=== PATIENT | female | born 1965 | race Caucasian/White ===

== ENCOUNTER 2021-09-26 11:45 | Emergency (ER) | payer OTHER, SELFPAY ==
--- NOTE | ~2021-09-26 | XR_ITS ---
EXAMINATION: XR CHEST CLINICAL INFORMATION: Chest pain COMPARISON: None TECHNIQUE: Frontal view of the chest was obtained. FINDINGS: There is borderline hyperinflation. Lungs are clear and the vascularity is normal. There is no pneumothorax, airspace consolidation, groundglass opacity, pleural reaction, or effusion. The heart is normal in size. The hilar and mediastinal contours and bony structures are unremarkable. XR/XR chest 1V IMPRESSION: Unremarkable examination.
--- NOTE | ~2021-09-26 | US_ITS ---
EXAMINATION: US VENOUS ULTRASOUND WITH DOPPLER LOWER EXTREMITY, RIGHT CLINICAL INFORMATION: Pain COMPARISON: None TECHNIQUE: Ultrasound of the deep veins is performed from the hip to the calf with compression sonography and color and pulse Doppler assessment. Spectral analysis with color-flow imaging is performed. FINDINGS: There is normal venous compression and respiratory variation and augmented flow. The visualized common femoral vein, superficial femoral vein, profunda femoral vein, popliteal vein, and the trifurcation region shows no evidence of deep venous thrombosis. There is no significant popliteal fossa cyst. US/US venous duplex LE RT IMPRESSION: No DVT demonstrated in the right lower extremity.
--- NOTE | 2021-09-26 11:49 | ECG_ITS ---
Test Reason : cp Blood Pressure : / mmHG Vent. Rate : 063 BPM Atrial Rate : 063 BPM P-R Int : 138 ms QRS Dur : 070 ms QT Int : 416 ms P-R-T Axes : 071 049 052 degrees QTc Int : 425 ms Normal sinus rhythm Normal ECG No previous ECGs available Referred By: Generic ED Physician Electronically Signed By:Garrett Gaines
[2021-09-26 12:12] VITALS: BP 114/56; PULSE 68; RESP 19; TEMP 36.3; O2SAT 98; BMI 23.8
[2021-09-26 12:15] LABS: MANUAL DIFF FLAG NO
[2021-09-26 12:16] LABS: Basophils Percent Auto 0.7 % (0-2); Eosinophils Absolute Auto 0.1 X10*3/uL (0.0-0.4); Eosinophils Percent Auto 2.4 % (0-4); Hematocrit 39.9 % (37.0-47.0); Imm Gran Abs Auto 0.01 X10*3/uL (0.00-0.03); Imm Gran Pct Auto 0.2 % (0.0-0.4); Lymphocytes Absolute Auto 1.3 X10*3/uL (1.2-4.9); Lymphocytes Percent Auto 30.5 % (20-40); Mean Corpuscular HGB Conc 32.6 g/dl (31.0-35.0); Mean Corpuscular Hemoglobin 30.8 pg (27.0-33.0); Mean Corpuscular Volume 94.5 fL (80.0-98.0); Mean Platelet Volume 10.4 fL (9.4-12.3); Monocytes Absolute Auto 0.4 X10*3/uL (0.1-1.2); Monocytes Percent Auto 8.7 % (2-11); Neutrophils Absolute Auto 2.4 x10*3/uL (2.0-8.3); Neutrophils Percent Auto 57.5 % (45-73); Platelet Count 265 X10*3/uL (160-400); Red Blood Count 4.22 X10*6/uL (4.20-5.50); Red Cell Distribution Width 13.2 % (11.0-16.0); White Blood Count 4.2 X10*3/uL (4.8-10.8)
[2021-09-26 12:35] LABS: Anion Gap 12 (12-20); Blood Urea Nitrogen 10 mg/dL (9-16); Calcium 9.7 mg/dL (8.4-10.2); Carbon Dioxide 28 mmol/L (22-29); Chloride 106 mmol/L (96-108); Creatinine Clr Calc Pharmacy 87.7; Estimated Glomerular Filt Rate > 60; Glucose Random 108 mg/dL (60-115); Potassium 4.7 mmol/L (3.3-5.1); Sodium 141 mmol/L (135-145)
[2021-09-26 12:43] LABS: Troponin-I High Sensitivity 3.6 ng/L (<3.5-17.0)
--- NOTE | 2021-09-26 15:28 | ED_ITS ---
HPI - Chest Pain General Chief Complaint: Chest Pain Stated Complaint: chest pain yesterday Time Seen by Provider: 09/26/21 15:08 Source: patient Mode of arrival: ambulatory Limitations: no limitations History of Present Illness HPI narrative: 56-year-old female presents to the ED for resolved chest pain. patient states 2 days of midsternal chest pain that resolved after mutliple rounds of tums and protonix at home. patient states no chest pain today. patient denies any shortness of breath, leg swelling, recent long travel, brith control use, recent surgery, chest pain on inspiration, fever, chills, coughing up blood, or history of blood clots. patient staes she had some right calf cramping sensation 2 days ago that resolved on its own. Related Data Allergies Allergy/AdvReac Type Severity Reaction Status Date / Time oxycodone [From PERCOCET] Allergy Intermediate ABDOMINAL Verified 09/26/21 12:09 PAIN trazodone Allergy Difficulty Verified 09/26/21 12:09 Breathing Review of Systems Review of Systems: resolved chest pain. Resolved Right calf cramping/discomfort. Yes all other systems are reviewed and are negative [facility] Past Medical History Medical History (Updated 09/26/21 @ 18:23 by RONAN Carney) No pertinent past medical history Social History Social History Advance Directives: No Advance Directives Information Provided: No Physical Exam Vital Signs: Vital Signs: Last Vital Signs Temp 97.3 F 09/26/21 12:12 Pulse 56 09/26/21 18:11 Resp 18 09/26/21 18:11 BP 140/68 H 09/26/21 18:11 Pulse Ox 98 09/26/21 18:11 BMI result Body Mass Index 23.8 Const: General: cooperative, healthy appearing, comfortable, no acute distress, well developed, alert, awake and Physically active Orientation/consciousness: oriented to time and patient oriented x3 HEENT: Head: Yes normal to inspection, Yes No palpable skull fracture present, Yes normocephalic, Yes atraumatic and No abrasion Eyes: General: appearance normal, both eyes and all related structures Neck: Neck: Yes normal visual inspection, Yes full ROM, Yes no lymphadenopathy, Yes no meningeal signs, Yes trachea midline, Yes supple, No anterior neck swelling and No tender Chest: Chest palpation & inspection: normal inspection of the chest and normal palpation of entire chest wall Resp: Effort & Inspection: normal respiratory effort and able to speak in complete sentences Auscultation: clear to auscultation bilaterally Cardio: Jugular venous distension: no JVD Heart sounds: S1 normal heart sound present and S2 normal heart sound present GI: Inspection: Yes normal to inspection and No abdominal wall ecchymosis Palpation (GI): Soft to palpation, not firm, nontender, no guarding and not rigid : General: No CVA tenderness and Yes no CVA tenderness Back/Spine/Pelvis: Back: no CVA tenderness, No CVA tenderness and No back tenderness Skin: General skin exam: no rashes or lesions noted and elasticity normal Neuro: General: oriented to time, patient oriented x3, gait normal, no meningeal signs and CN's II-XI intact bilaterally Cranial nerves: Yes CN's II-XII intact bilaterally Extrem: Other: Bilateral lower extremities negative for any leg swelling, calf pain, pitting edema, or erythema Psych: Appearance: grossly normal, well kempt and not disheveled Course Course Course Narrative: Patient presently is asymptomatic. Intial EKG and troponin/labs were normal. Due her stating resolved calf pain will do ultrasound and D-dimer. patient presently is asymptomatic. EKG negative STEMI. Ches xray is normal Reevaluation(s) Reevaluation #1: EKG negative STEMI. Troponins negative. D-dimer is negative and Well's Criteria 0. Chest xray is normal. Venous Ultrasound negative for DVT. patient never had chest pain during ED visit. patient given lab results and EKG, imaging reports. Time: 18:18 Additional Reevaluation(s): a MDM - Chest Pain MDM Narrative Medical decision making narrative: GERD. Atypical Chest pain Lab Data Result diagrams: 09/26/21 12:10 09/26/21 12:10 Labs: Lab Results 09/26/21 09/26/21 09/26/21 Range/Units 12:10 12:10 12:10 WBC 4.2 L (4.8-10.8) X10*3/uL RBC 4.22 (4.20-5.50) X10*6/uL Hgb 13.0 (12.0-16.0) g/dl Hct 39.9 (37.0-47.0) % MCV 94.5 (80.0-98.0) fL MCH 30.8 (27.0-33.0) pg MCHC 32.6 (31.0-35.0) g/dl RDW 13.2 (11.0-16.0) % Plt Count 265 (160-400) X10*3/uL MPV 10.4 (9.4-12.3) fL Immature Gran % (Auto) 0.2 (0.0-0.4) % Neut % (Auto) 57.5 (45-73) % Lymph % (Auto) 30.5 (20-40) % [place] % (Auto) 8.7 (2-11) % Eos % (Auto) 2.4 (0-4) % Baso % (Auto) 0.7 (0-2) % Lymph # (Auto) 1.3 (1.2-4.9) X10*3/uL [place] # (Auto) 0.4 (0.1-1.2) X10*3/uL Eos # (Auto) 0.1 (0.0-0.4) X10*3/uL Baso # (Auto) 0.0 (0.0-0.2) X10*3/uL Abs Immat Gran (auto) 0.01 (0.00-0.03) X10*3/uL Absolute Neuts (auto) 2.4 (2.0-8.3) x10*3/uL Absolute Nucleated RBC 0.000 (0.0-0.012) X10*3/uL Nucleated RBC % (auto) 0.0 (0.0-0.2) /100WBC PT (9.9-13.0) SEC INR (0.9-1.1) APTT (24.1-38.0) SEC D-Dimer High Sensitivty NG/ML Sodium 141 (135-145) mmol/L Potassium 4.7 (3.3-5.1) mmol/L Chloride 106 (96-108) mmol/L Carbon Dioxide 28 (22-29) mmol/L Anion Gap 12 (12-20) BUN 10 (9-16) mg/dL Creatinine 0.73 (0.5-1.4) mg/dL Estim Creat Clear Calc 87.7 Estimated GFR > 60 Random Glucose 108 (60-115) mg/dL Calcium 9.7 (8.4-10.2) mg/dL Troponin I High Sens 3.6 (<3.5-17.0) ng/L 09/26/21 09/26/21 Range/Units 15:54 15:54 WBC (4.8-10.8) X10*3/uL RBC (4.20-5.50) X10*6/uL Hgb (12.0-16.0) g/dl Hct (37.0-47.0) % MCV (80.0-98.0) fL MCH (27.0-33.0) pg MCHC (31.0-35.0) g/dl RDW (11.0-16.0) % Plt Count (160-400) X10*3/uL MPV (9.4-12.3) fL Immature Gran % (Auto) (0.0-0.4) % Neut % (Auto) (45-73) % Lymph % (Auto) (20-40) % [place] % (Auto) (2-11) % Eos % (Auto) (0-4) % Baso % (Auto) (0-2) % Lymph # (Auto) (1.2-4.9) X10*3/uL [place] # (Auto) (0.1-1.2) X10*3/uL Eos # (Auto) (0.0-0.4) X10*3/uL Baso # (Auto) (0.0-0.2) X10*3/uL Abs Immat Gran (auto) (0.00-0.03) X10*3/uL Absolute Neuts (auto) (2.0-8.3) x10*3/uL Absolute Nucleated RBC (0.0-0.012) X10*3/uL Nucleated RBC % (auto) (0.0-0.2) /100WBC PT 11.8 (9.9-13.0) SEC INR 1.0 (0.9-1.1) APTT 31.3 (24.1-38.0) SEC D-Dimer High Sensitivty < 150 NG/ML Sodium (135-145) mmol/L Potassium (3.3-5.1) mmol/L Chloride (96-108) mmol/L Carbon Dioxide (22-29) mmol/L Anion Gap (12-20) BUN (9-16) mg/dL Creatinine (0.5-1.4) mg/dL Estim Creat Clear Calc Estimated GFR Random Glucose (60-115) mg/dL Calcium (8.4-10.2) mg/dL Troponin I High Sens 4.0 (<3.5-17.0) ng/L ECG Data ECG #1: Interpretation: Normal Sinus RHyth. Normal EKG. Vent rate is 63, CA 138, QTC 425. QRS 70 Discharge Plan Discharge Clinical Impression: Atypical chest pain, GERD (gastroesophageal reflux disease) Patient Disposition: Home, Self-Care Instructions: Chest Pain (DC), Gastroesophageal Reflux Disease (ED) Additional Instructions: Your labs, EKG, Ulrasound, and Chest xray came back negative for heart attack, Blood clot, and pneumonia. Your labs are normal. Please follow up with PCP. Return to the ED for chest pain, shortness of breath, leg swelling, calf pain, coughing up blood, fever, chills, dizziness, or any other concerning symptoms. Stand Alone Forms: Work/School Release Interventions: ED Discharge Assessment Last Done: 09/26/21 18:36 Discharge Date/Time: 09/26/21 18:38 Print Language: [place]
[2021-09-26 15:50] VITALS: BP 116/52; PULSE 55; RESP 18; O2SAT 98
[2021-09-26 17:46] LABS: Prothrombin Time 11.8 SEC (9.9-13.0)
[2021-09-26 17:49] LABS: Partial Thromboplastin Time 31.3 SEC (24.1-38.0)
[2021-09-26 18:05] LABS: D Dimer High Sensitivity < 150 NG/ML
[2021-09-26 18:11] VITALS: BP 140/68; PULSE 56; RESP 18; O2SAT 98
== END 2021-09-26 18:38 | disposition home or self-care (01) ==
PROVIDERS: Physician Assistant; Emergency Provider Emergency Medicine; PCP Internal Medicine
DX: R07.89 Other chest pain (principal); K21.9 Gastro-esophageal reflux disease without esophagitis; M79.661 Pain in right lower leg
CPT/HCPCS: 36415; 71045; 80048; 84484; 85025; 85379; 85610; 85730; 93005; 93971; 99284

== ENCOUNTER 2021-10-06 02:02 | Emergency (ER) | payer OTHER, SELFPAY ==
--- NOTE | ~2021-10-06 | CT_ITS ---
EXAMINATION: CT ABDOMEN AND PELVIS WITH CONTRAST CLINICAL INFORMATION: Bilateral upper abdominal pain COMPARISON: 09/29/2015 TECHNIQUE: Multidetector volumetric images were obtained from the superior aspect of the liver through the pubic symphysis following administration 85 mL of Omnipaque 350 intravenous contrast. Sagittal and coronal reformatted images were obtained on the technologist's workstation. Oral contrast: No This CT examination was performed using dose optimization techniques as appropriate, variously including the following: *Automated exposure control *Adjustment of mA and/or kV according to patient size (this includes techniques or standardized protocols for targeted exams where dose is matched to indication/reason for exam; i.e. extremities or head) *Use of iterative reconstruction technique DLP: 539 mGy-cm FINDINGS: LUNG BASES: The visualized lung bases are unremarkable. LIVER, GALLBLADDER, AND BILIARY TREE: The liver is normal in size, shape, and attenuation. No biliary ductal dilatation. Unchanged 0.5 cm hypoattenuating lesion in the dome of the right lobe of the liver, too small to further characterize.. The gallbladder is unremarkable with no evidence of radiopaque gallstones, gallbladder wall thickening, or obvious pericholecystic inflammatory changes. PANCREAS: Unremarkable. SPLEEN: Unremarkable. ADRENAL GLANDS: Unremarkable. KIDNEYS AND URETERS: The kidneys are normal in size, shape, and attenuation. No hydronephrosis, hydroureter, or calculi seen. No perinephric stranding. BLADDER: Unremarkable. GASTROINTESTINAL TRACT: The stomach is unremarkable. Normal caliber small bowel. No obstruction. Normal appendix. No free air or free fluid. ABDOMINAL WALL: No significant hernia is appreciated. LYMPH NODES: Normal. VASCULAR: Normal caliber aorta with mild atherosclerotic calcification. PELVIC VISCERA: Uterus not seen. No adnexal mass. OSSEOUS STRUCTURES: No acute or suspicious osseous abnormality. Degenerative change at L5-S1. CT/CT abdomen pelvis w con IMPRESSION: No acute findings in the abdomen or pelvis. No inflammatory changes. Fleischner guidelines were followed.
--- NOTE | ~2021-10-06 | XR_ITS ---
EXAMINATION: XR ABDOMEN KUB CLINICAL INDICATION: History of constipation. Low suspicion for obstruction. COMPARISON: CT 09/29/2015 TECHNIQUE: AP view of the abdomen. FINDINGS: Nonobstructive bowel gas pattern. No dilated loops of bowel. Scattered gas throughout the small bowel. Gas and stool in the colon with mild colonic stool burden. The lung bases are clear. No acute osseous abnormality. XR/XR KUB IMPRESSION: Nonobstructive appearance. Mild colonic stool burden.
[2021-10-06 02:14] VITALS: BP 134/69; PULSE 61; RESP 16; TEMP 37; O2SAT 98; BMI 24.3
[2021-10-06 02:23] LABS: MANUAL DIFF FLAG NO
[2021-10-06 02:24] LABS: Basophils Absolute Auto 0.1 X10*3/uL (0.0-0.2); Basophils Percent Auto 0.8 % (0-2); Eosinophils Absolute Auto 0.1 X10*3/uL (0.0-0.4); Eosinophils Percent Auto 1.4 % (0-4); Hematocrit 38.5 % (37.0-47.0); Hemoglobin 12.7 g/dl (12.0-16.0); Imm Gran Abs Auto 0.03 X10*3/uL (0.00-0.03); Imm Gran Pct Auto 0.5 % (0.0-0.4); Lymphocytes Absolute Auto 2.1 X10*3/uL (1.2-4.9); Lymphocytes Percent Auto 31.4 % (20-40); Mean Corpuscular Hemoglobin 30.5 pg (27.0-33.0); Mean Corpuscular Volume 92.3 fL (80.0-98.0); Mean Platelet Volume 10.3 fL (9.4-12.3); Monocytes Absolute Auto 0.6 X10*3/uL (0.1-1.2); Monocytes Percent Auto 9.1 % (2-11); Neutrophils Absolute Auto 3.8 x10*3/uL (2.0-8.3); Neutrophils Percent Auto 56.8 % (45-73); Platelet Count 277 X10*3/uL (160-400); Red Blood Count 4.17 X10*6/uL (4.20-5.50); White Blood Count 6.6 X10*3/uL (4.8-10.8)
--- NOTE | 2021-10-06 02:51 | ED_ITS ---
HPI - Abdominal Pain General Chief Complaint: Abdominal Pain Stated Complaint: severe L side pain Time Seen by Provider: 10/06/21 02:45 Source: patient Mode of arrival: ambulatory Limitations: no limitations History of Present Illness HPI narrative: Patient comes to the emergency room complaining constipation, abdominal pain. Patient states that in the past, she has had similar episodes of abdominal pain and constipation. Patient takes Metamucil every day, no other medication. Patient denies nausea vomiting or diarrhea. Denies URI or UTI symptoms. Related Data Allergies Allergy/AdvReac Type Severity Reaction Status Date / Time oxycodone [From PERCOCET] Allergy Intermediate ABDOMINAL Verified 09/26/21 12:09 PAIN trazodone Allergy Difficulty Verified 09/26/21 12:09 Breathing Review of Systems Review of Systems Constitutional : No Weight loss, No Fever, No Chills, No Night Sweats, No Fatigue, No Malaise ENT/Mouth : No Hearing loss, No Ear Pain, No Nasal Congestion, No Sinus Pain, No Hoarseness, No sore throat, No Rhinorrhea, No Swallowing Difficulty Eyes: No Eye Pain, No Swelling, No Redness, No Foreign Body, No Discharge, No Vision Changes Cardiovascular : No Chest Pain, No SOB, No Dyspnea on Exertion, No Orthopnea, No Edema, No Palpitations Respiratory : No Cough, No Sputum, No Wheezing, No Smoke Exposure, No Dyspnea Gastrointestinal : No Nausea, No Vomiting, No Diarrhea, complaining of Constipation, complaining of right abdominal bloating, No Hematochezia, No Melena Genitourinary : no irregular bleeding, No Dysuria, No Urinary Frequency, No Hematuria, No Urinary Incontinence, No Urgency, No Flank Pain, No Urinary Flow Changes, No Hesitancy Musculoskeletal : No joint pain, No Myalgias, No Joint Swelling Skin : No Skin Lesions, No rash Neuro : No Weakness, No Numbness, No Paresthesias, No Loss of Consciousness, No Dizziness, No Headache Psych : No Anxiety/Panic, No Depression, No SI/HI/AH/VH, No Social Issues, Heme/Lymph: No Bruising, No Bleeding,No Lymphadenopathy Endocrine : No Polyuria, No Polydipsia, No Temperature Intolerance PMFSH Past Medical History Medical History Chronic constipation No pertinent past medical history Social History Social History Advance Directives: No Patient : No Physical Exam ED Vital Signs: Vital Signs - 24 hr 10/06/21 02:14 10/06/21 03:07 Temperature 98.6 F 97.7 F Pulse Rate 61 57 Respiratory Rate 16 16 Blood Pressure 134/69 149/75 H Pulse Oximetry 98 99 BMI result Body Mass Index 24.3 Const Other: Appearance: Alert. Oriented X3. No acute distress. Well-appearing Eyes: Pupils equal, round and reactive to light. ENT: Pharynx normal. Neck: Normal inspection. Neck supple. No lymph nodes noted. No crepitus CVS: Normal heart rate and rhythm. Pulses normal. Normal S1 and S2 Respiratory: No respiratory distress. Breath sounds normal. No Wheezing. No rales Abdomen: Soft , mild discomfort to palpation on the left lower quadrant, No rigidity. No distention. Skin: Skin warm and dry. Normal skin color. Normal skin turgor. Extremities: No lower extremity edema. No Lacerations. No Rash Neuro: Oriented X 3. No motor deficit. No sensory deficit. Moving all extremities. No slurred speech. CN 2 through 12 grossly intact Psych: calm, cooperative, normal affect Course Course Course Narrative: Patient's labs are pending. KUB pending. I discussed the labs, KUB and CT scan with the patient. There are no significant acute findings. It is possible that patient's pain is likely sec ondary to constipation and distention. Patient will start taking MiraLax daily. Patient declined a prescription. MDM - Abdominal Pain Lab Data Result diagrams: 10/06/21 02:18 10/06/21 02:18 Labs: Lab Results 10/06/21 10/06/21 10/06/21 Range/Units 02:18 02:18 02:18 WBC 6.6 (4.8-10.8) X10*3/uL RBC 4.17 L (4.20-5.50) X10*6/uL Hgb 12.7 (12.0-16.0) g/dl Hct 38.5 (37.0-47.0) % MCV 92.3 (80.0-98.0) fL MCH 30.5 (27.0-33.0) pg MCHC 33.0 (31.0-35.0) g/dl RDW 13.0 (11.0-16.0) % Plt Count 277 (160-400) X10*3/uL MPV 10.3 (9.4-12.3) fL Immature Gran % (Auto) 0.5 H (0.0-0.4) % Neut % (Auto) 56.8 (45-73) % Lymph % (Auto) 31.4 (20-40) % [place] % (Auto) 9.1 (2-11) % Eos % (Auto) 1.4 (0-4) % Baso % (Auto) 0.8 (0-2) % Lymph # (Auto) 2.1 (1.2-4.9) X10*3/uL [place] # (Auto) 0.6 (0.1-1.2) X10*3/uL Eos # (Auto) 0.1 (0.0-0.4) X10*3/uL Baso # (Auto) 0.1 (0.0-0.2) X10*3/uL Abs Immat Gran (auto) 0.03 (0.00-0.03) X10*3/uL Absolute Neuts (auto) 3.8 (2.0-8.3) x10*3/uL Absolute Nucleated RBC 0.000 (0.0-0.012) X10*3/uL Nucleated RBC % (auto) 0.0 (0.0-0.2) /100WBC Sodium 138 (135-145) mmol/L Potassium 3.9 (3.3-5.1) mmol/L Chloride 102 (96-108) mmol/L Carbon Dioxide 27 (22-29) mmol/L Anion Gap 13 (12-20) BUN 18 H D (9-16) mg/dL Creatinine 0.75 (0.5-1.4) mg/dL Estim Creat Clear Calc 82.5 Estimated GFR > 60 Random Glucose 98 (60-115) mg/dL Calcium 9.7 (8.4-10.2) mg/dL Urine Color Urine Appearance Urine pH (5.0-8.0) Ur Specific [place] (1.005-1.025) Urine Protein (NEG-TRACE) MG/DL Urine Glucose (UA) (NEG) MG/DL Urine Ketones (NEG) MG/DL Urine Blood (NEG) Urine Nitrite (NEG) Ur Leukocyte Esterase (NEG) Urine Test (NEGATIVE) COVID-19 (SUSY) Negative (Negative) COVID-19 Clin Com See Note 10/06/21 10/06/21 Range/Units 03:04 03:04 WBC (4.8-10.8) X10*3/uL RBC (4.20-5.50) X10*6/uL Hgb (12.0-16.0) g/dl Hct (37.0-47.0) % MCV (80.0-98.0) fL MCH (27.0-33.0) pg MCHC (31.0-35.0) g/dl RDW (11.0-16.0) % Plt Count (160-400) X10*3/uL MPV (9.4-12.3) fL Immature Gran % (Auto) (0.0-0.4) % Neut % (Auto) (45-73) % Lymph % (Auto) (20-40) % [place] % (Auto) (2-11) % Eos % (Auto) (0-4) % Baso % (Auto) (0-2) % Lymph # (Auto) (1.2-4.9) X10*3/uL [place] # (Auto) (0.1-1.2) X10*3/uL Eos # (Auto) (0.0-0.4) X10*3/uL Baso # (Auto) (0.0-0.2) X10*3/uL Abs Immat Gran (auto) (0.00-0.03) X10*3/uL Absolute Neuts (auto) (2.0-8.3) x10*3/uL Absolute Nucleated RBC (0.0-0.012) X10*3/uL Nucleated RBC % (auto) (0.0-0.2) /100WBC Sodium (135-145) mmol/L Potassium (3.3-5.1) mmol/L Chloride (96-108) mmol/L Carbon Dioxide (22-29) mmol/L Anion Gap (12-20) BUN (9-16) mg/dL Creatinine (0.5-1.4) mg/dL Estim Creat Clear Calc Estimated GFR Random Glucose (60-115) mg/dL Calcium (8.4-10.2) mg/dL Urine Color YELLOW Urine Appearance CLEAR Urine pH 5.5 (5.0-8.0) Ur Specific [place] >= 1.030 H (1.005-1.025) Urine Protein NEG (NEG-TRACE) MG/DL Urine Glucose (UA) NEG (NEG) MG/DL Urine Ketones NEG (NEG) MG/DL Urine Blood NEG (NEG) Urine Nitrite NEG (NEG) Ur Leukocyte Esterase NEG (NEG) Urine Test NEGATIVE (NEGATIVE) COVID-19 (SUSY) (Negative) COVID-19 Clin Com Imaging Data CT scan - abdomen: Radiologist's impression: FINDINGS: LUNG BASES: The visualized lung bases are unremarkable.? LIVER, GALLBLADDER, AND BILIARY TREE: The liver is normal in size, shape, and attenuation. No biliary ductal dilatation. Unchanged 0.5 cm hypoattenuating lesion in the dome of the right lobe of the liver, too small to further characterize.. The gallbladder is unremarkable with no evidence of radiopaque gallstones, gallbladder wall thickening, or obvious pericholecystic inflammatory changes.? PANCREAS: Unremarkable.? SPLEEN: Unremarkable.? ADRENAL GLANDS: Unremarkable.? KIDNEYS AND URETERS: The kidneys are normal in size, shape, and attenuation. No hydronephrosis, hydroureter, or calculi seen. No perinephric stranding. ? BLADDER: Unremarkable.? GASTROINTESTINAL TRACT: The stomach is unremarkable. Normal caliber small bowel. No obstruction. Normal appendix. No free air or free fluid.? ABDOMINAL WALL: No significant hernia is appreciated.? LYMPH NODES: Normal. VASCULAR: Normal caliber aorta with mild atherosclerotic calcification. PELVIC VISCERA: Uterus not seen. No adnexal mass.? OSSEOUS STRUCTURES: No acute or suspicious osseous abnormality. Degenerative change at L5-S1.? CT/CT abdomen pelvis w con IMPRESSION: No acute findings in the abdomen or pelvis. No inflammatory changes.? ? Fleischner guidelines were followed. Discharge Plan Discharge Clinical Impression: Abdominal pain Patient Disposition: Home, Self-Care Instructions: Abdominal Pain (ED) Additional Instructions: Please follow-up with your primary care physician tomorrow. If you have any worsening or new symptoms, please return to the emergency room or call 911
[2021-10-06 02:56] LABS: COVID-19 Test Negative (Negative); IDNOW Serial# 16C4AD1C
[2021-10-06 03:05] LABS: Anion Gap 13 (12-20); Blood Urea Nitrogen 18 mg/dL (9-16); Carbon Dioxide 27 mmol/L (22-29); Chloride 102 mmol/L (96-108); Creatinine Clr Calc Pharmacy 82.5; Estimated Glomerular Filt Rate > 60; Potassium 3.9 mmol/L (3.3-5.1); Sodium 138 mmol/L (135-145)
[2021-10-06 03:06] LABS: Calcium 9.7 mg/dL (8.4-10.2); Glucose Random 98 mg/dL (60-115)
[2021-10-06 03:07] VITALS: BP 149/75; PULSE 57; RESP 16; TEMP 36.5; O2SAT 99
[2021-10-06 03:10] LABS: Appearance Urine CLEAR; Color Urine YELLOW; Glucose Urine UA NEG (NEG); Leukocyte Esterase Urine NEG (NEG); Nitrite Urine NEG (NEG); PH 5.5 (5.0-8.0); Specific Gravity - Urine >= 1.030 (1.005-1.025); Urine Blood NEG (NEG); Urine Ketones NEG (NEG); Urine Protein NEG (NEG-TRACE)
[2021-10-06 03:12] LABS: UPreg QC Valid YES; Urine Pregnancy NEGATIVE (NEGATIVE)
[2021-10-06] MEDS: iohexoL 350 MG/ML 100 ML INFUS..BTL 85 ML IV (03:54)
== END 2021-10-06 05:59 | disposition home or self-care (01) ==
PROVIDERS: Emergency Provider Emergency Medicine; PCP Internal Medicine
DX: R10.32 Left lower quadrant pain (principal); Z20.822 Contact with and (suspected) exposure to COVID-19; Z79.899 Other long term (current) drug therapy
CPT/HCPCS: 74018; 74177; 80048; 81003; 81025; 85025; 87635; 99283; 99284; Q9967

== ENCOUNTER 2022-02-08 13:59 | Emergency (ER) | payer OTHER, SELFPAY ==
--- NOTE | ~2022-02-08 | XR_ITS ---
EXAMINATION: XR KNEE, RIGHT CLINICAL INFORMATION: Fall with pain COMPARISON: None TECHNIQUE: AP and crosstable lateral views of the right knee. FINDINGS: Moderate to large lipohemarthrosis suspicious for intra-articular fracture. There is subtle lucency through the patella equivocal for nondisplaced patellar fracture. No other fracture line is seen. Joint spaces are maintained. No osseous lesion. XR/XR knee RT 2V IMPRESSION: 1. Moderate to large lipohemarthrosis suspicious for underlying intra-articular fracture. 2. Subtle linear lucency through the lower patella, possibly nondisplaced patellar fracture. Correlate with focal pain at this location on exam.
--- NOTE | ~2022-02-08 | XR_ITS ---
EXAMINATION: XR FOREARM, RIGHT XR HAND, LEFT CLINICAL INFORMATION: Fall. Pain. COMPARISON: None TECHNIQUE: 2 views, 3 images of the right forearm. 3 views of the left hand. FINDINGS: Right forearm: No fracture or cortical disruption. Alignment maintained at the wrist and elbow. The soft tissues appear unremarkable. Left hand: No fracture or dislocation. Alignment is anatomic. Joint spaces are maintained. The soft tissues are unremarkable. Cystic change noted in the lunate, likely degenerative. XR/XR hand LT min 3V IMPRESSION: No acute abnormality of the right forearm or left hand.
--- NOTE | ~2022-02-08 | XR_ITS ---
EXAMINATION: XR FOREARM, RIGHT XR HAND, LEFT CLINICAL INFORMATION: Fall. Pain. COMPARISON: None TECHNIQUE: 2 views, 3 images of the right forearm. 3 views of the left hand. FINDINGS: Right forearm: No fracture or cortical disruption. Alignment maintained at the wrist and elbow. The soft tissues appear unremarkable. Left hand: No fracture or dislocation. Alignment is anatomic. Joint spaces are maintained. The soft tissues are unremarkable. Cystic change noted in the lunate, likely degenerative. XR/XR forearm RT 2V IMPRESSION: No acute abnormality of the right forearm or left hand.
--- NOTE | ~2022-02-08 | XR_ITS ---
EXAMINATION: XR ELBOW, RIGHT CLINICAL INFORMATION: Severe elbow pain status post fall COMPARISON: None TECHNIQUE: AP, lateral, and oblique views of the right elbow. FINDINGS: There is no definite fracture visualized. Alignment is maintained. There is elevation of the anterior fat pad, concerning for a joint effusion. The soft tissues appear unremarkable otherwise. XR/XR elbow RT min 3V IMPRESSION: Elbow joint effusion. No fracture visualized. Consider CT evaluation, as there is concern for occult fracture.
--- NOTE | ~2022-02-08 | CT_ITS ---
EXAMINATION: CT RIGHT ELBOW WITHOUT CONTRAST. CLINICAL INFORMATION: Severe elbow pain status post fall. COMPARISON: Right elbow 02/08/2022 TECHNIQUE: 3 mm thin axial and reformatted 1 mm thin sagittal and coronal images of elbow were obtained without contrast. DLP 111. FINDINGS: There is no visible acute fracture, dislocation or subluxation seen. No avulsion fracture seen either. No abnormal joint effusion seen. CT/CT elbow RT wo con IMPRESSION: Unremarkable CT elbow exam. No acute fracture, dislocation or subluxation. No abnormal joint effusion seen.
[2022-02-08 14:04] VITALS: BP 110/70; PULSE 64; O2SAT 98
[2022-02-08 14:26] VITALS: BP 139/69; PULSE 62; RESP 18; TEMP 36.9; O2SAT 97; BMI 21.4
--- NOTE | 2022-02-08 17:57 | ED.FALL ---
HPI - Fall General Chief Complaint: Fall <RONAN Paulino Last Filed: 02/08/22 18:26> Stated Complaint: R HAND/ARM/KNEE & L HAAND PAIN S/P FALL <RONAN Paulino Last Filed: 02/08/22 18:26> Time Seen by Provider: 02/08/22 17:57 <RONAN Paulino Last Filed: 02/08/22 18:26> Source: patient <RONAN Paulino Last Filed: 02/08/22 18:26> Mode of arrival: ambulatory <RONAN Paulino Last Filed: 02/08/22 18:26> Limitations: no limitations <RONAN Paulino Last Filed: 02/08/22 18:26> History of Present Illness HPI Narrative: 57-year-old female presents to the ER for evaluation after she fell while at work today. Patient reports she was working at the [employer] when she accidentally tripped over a cord of a bed alarm and she fell forward onto cement floor with her right hand and forearm, elbow as well as her right knee. She reports severe pain. She was unable to get up because of the pain and needed assistance. She reports she has ?pain all over. ? she is unable to bend her right knee due to pain. She is unable to bend her right elbow beyond 90 degrees due to pain. She also reports significant right wrist pain. She is tearful on arrival. She is not on anticoagulation and not hit her head. <RONAN Paulino Last Filed: 02/08/22 18:26> MD complaint: fall <RONAN Paulino Last Filed: 02/08/22 18:26> Onset (ago): hour(s) <RONAN Paulino Last Filed: 02/08/22 18:26> Fall from: standing <RONAN Paulino Last Filed: 02/08/22 18:26> Fall witnessed: yes, by bystander <RONAN Paulino Last Filed: 02/08/22 18:26> Place fall occurred: work <RONAN Paulino Last Filed: 02/08/22 18:26> Loss of consciousness: none <RONAN Paulino Last Filed: 02/08/22 18:26> Prolonged down time: no <RONAN Paulino Last Filed: 02/08/22 18:26> Symptoms prior to fall: none <RONAN Paulino Last Filed: 02/08/22 18:26> Context: tripped/slipped <RONAN Paulino Last Filed: 02/08/22 18:26> Location of injury - extremities: right: elbow, forearm and knee <RONAN Paulino Last Filed: 02/08/22 18:26> Severity: severe <RONAN Paulino Last Filed: 02/08/22 18:26> Severity scale (1-10): 10 <RONAN Paulino Last Filed: 02/08/22 18:26> Quality: sharp and aching <RONAN Paulino Last Filed: 02/08/22 18:26> Associated symptoms (after fall): unable to walk <RONAN Paulino Last Filed: 02/08/22 18:26> Related Data Home Medications: Previous Rx's Medication Instructions Recorded acetaminophen 500 mg tablet 1,000 mg PO QID PRN fever or pain 02/08/22 (Tylenol Extra Strength) #14 tabs ibuprofen 800 mg tablet 800 mg PO Q8H PRN pain #14 tabs 02/08/22 <RONAN Paulino Last Filed: 02/08/22 18:26> Allergies/Adverse Reactions: Allergies Allergy/AdvReac Type Severity Reaction Status Date / Time oxycodone [From PERCOCET] Allergy Intermediate ABDOMINAL Verified 09/26/21 12:09 PAIN trazodone Allergy Difficulty Verified 09/26/21 12:09 Breathing <RONAN Paulino Last Filed: 02/08/22 18:26> Review of Systems Review of Systems: Constitutional: No Fever, No Chills Cardiovascular: No Chest Pain, No SOB Respiratory: No Cough, No Sputum Gastrointestinal: No Nausea, No Vomiting, No Diarrhea, No abdominal Pain Musculoskeletal: + joint pain, + Myalgias Skin: No Skin Lesions, No rash Neuro: + Weakness, No Numbness, No Dizziness, No Headache Psych: + Anxiety/Panic, No Depression Heme/Lymph: No Bruising, No Lymphadenopathy Endocrine: No Polyuria, No Polydipsia <RONAN Paulino - Last Filed: 02/08/22 18:26> [facility] Past Medical History Attestation statement: The following information was validated with the patient. <RONAN Li - Last Filed: 02/08/22 20:40> Source: old records reviewed and nursing notes reviewed <RONAN Li - Last Filed: 02/08/22 20:40> Medical History: Medical History Chronic constipation No pertinent past medical history <RONAN Paulino - Last Filed: 02/08/22 18:26> Social History Social History: Social History Advance Directives: No Advance Directives Information Provided: No <RONAN Paulino - Last Filed: 02/08/22 18:26> Physical Exam Vital Signs: Vital Signs: Last Vital Signs Temp 98.4 F 02/08/22 14:26 Pulse 62 02/08/22 14:26 Resp 18 02/08/22 14:26 BP 139/69 02/08/22 14:26 Pulse Ox 97 02/08/22 14:26 O2 Del Method 02/08/22 14:26 BMI result Body Mass Index 21.4 <RONAN Paulino - Last Filed: 02/08/22 18:26> Vital Signs: Last Vital Signs Temp 98.4 F 02/08/22 14:26 Pulse 62 02/08/22 14:26 Resp 18 02/08/22 14:26 BP 139/69 02/08/22 14:26 Pulse Ox 97 02/08/22 14:26 O2 Del Method 02/08/22 14:26 BMI result Body Mass Index 21.4 <RONAN Li - Last Filed: 02/08/22 20:40> Appearance: Alert. Oriented X3. No acute distress. HEENT: normal inspection CVS: Normal heart rate and rhythm. Pulses normal. Respiratory: No respiratory distress. Skin: Skin warm and dry. Normal skin color. Normal skin turgor. No rashes. Extremities: mild generalized swelling of the dorsal wrist with tenderness centrally, pain with ROM. no metacarpal tenderness. normal telemarketing fundraiser strength, NV intact distally. right forearm compartments are soft and compressible, no ecchymosis, swelling or gross deformities. right elbow with diffuse tenderness, laterally more than medially, pain with flexion past 45 degrees. right knee with tenderness of the patella. no abnormal mobility. severe pain w flexion of the knee at 10 degrees. unable to assess joint laxity due to pain. no right ankle tenderness. left hand without swelling or ecchymosis. minimal tenderness of the dorsal aspect of the hand over metacarpals 2-4. no point tenderness. no scaffoid tenderness. Neuro: Oriented X 3. nonfocal. no sensory deficits. Unable to test gait due to pain. <RONAN Paulino - Last Filed: 02/08/22 18:26> Course Course Course Narrative: 57-year-old female presents to the ER for evaluation of right elbow pain, right forearm pain, right wrist pain, right knee pain and left hand pain after she tripped and fell onto the cement floor at work when she tripped over a bed alarm cord. She reports significant pain in her right knee and right elbow mostly. She is unable to bend her knee past 10 degrees. Her right elbow she says feels like there is fluid on the joint. She is unable to bend it past 45 degrees. There x-rays done of the right forearm, right hand and left hand. The right forearm and left hand have no acute fractures or acute abnormalities. Given her significant tenderness of the right elbow will get dedicated elbow films. X-ray of the right knee showing a subtle linear lucency through the lower patella possibly nondisplaced patellar fracture. There is also a moderate to large lipohemarthrosis suspicious for underlying articular fracture. Will need to placed in a knee immobilizer. She will be nonweightbearing on the right lower extremity. Given her pain in her right wrist, hand, elbow this will be difficult for her to navigate ADLs and mobility. May need to discuss short-term rehab if she has any elbow fractures. Pain meds ordered, will reassess. <RONAN Paulino - Last Filed: 02/08/22 18:26> Reevaluation(s) Reevaluation #1: Patient declined oxycodone and Motrin and only took tylenol. She has an allergy for oxycodone, listed as ?upset stomach. ? She reports her pain is 10/10. Advised her we can monitor her for developing an upset stomach and treat as necessary but she declined further medication. X-rays of her elbow or pending. Concern she may need acute rehab if she is unable to bear weight on her right lower extremity and use crutches with her upper extremities due to pain. Sign out to Elma who will follow-up imaging and dispo <RONAN Paulino - Last Filed: 02/08/22 18:26> Reevaluation #2: - right elbow x-ray revealed elbow joint effusion no fracture visible. They reported consider CT evaluation as there is concern for acute fracture. Patient reports that she cannot completely extend the arm therefore she would like a CT scan of her elbow to completely rule out a fracture. Therefore at this time CT scan ordered. Patient is now in a knee mobilizer with a crutches. Will re-evaluate after CT scan of elbow. <RONAN Li - Last Filed: 02/08/22 20:40> Time: 20:26 <RONAN Li - Last Filed: 02/08/22 20:40> Reevaluation #3: - CT of right elbow negative for fracture or dislocation any other acute processes. I printed out the results and handed to the patient. Instructed patient to follow-up with orthopedics and PCP and to return if any new or worsening symptoms. Although patient declining short-term rehab reports that she can make it up and down her stairs with the crutches without weight-bearing. I explained to her that she has to stay without weight-bearing to the right knee/leg and she understands this and agrees with the plan. <RONAN Li - Last Filed: 02/08/22 20:40> Time: 20:37 <RONAN Li Last Filed: 02/08/22 20:40> MDM - Fall Medical Records Attestation: I reviewed the patient's medical records. <RONAN Li Last Filed: 02/08/22 20:40> Imaging Data CT scan of elbow right side: Attestation: I personally reviewed and interpreted this imaging study as follows: <RONAN Li Last Filed: 02/08/22 20:40> Radiologist's impression: FINDINGS: There is no visible acute fracture, dislocation or subluxation seen. No avulsion fracture seen either. No abnormal joint effusion seen.? CT/CT elbow RT wo con IMPRESSION: Unremarkable CT elbow exam. No acute fracture, dislocation or subluxation. No abnormal joint effusion seen. <RONAN Li - Last Filed: 02/08/22 20:40> Right elbow x-ray: Attestation: I personally reviewed and interpreted this imaging study as follows: <RONAN Li Last Filed: 02/08/22 20:40> Radiologist's impression: FINDINGS: There is no definite fracture visualized. Alignment is maintained. There is elevation of the anterior fat pad, concerning for a joint effusion. The soft tissues appear unremarkable otherwise.? XR/XR elbow RT min 3V IMPRESSION: Elbow joint effusion. No fracture visualized. Consider CT evaluation, as there is concern for occult fracture. <RONAN Li Last Filed: 02/08/22 20:40> Right knee x-ray: Attestation: I personally reviewed and interpreted this imaging study as follows: <RONAN Li Last Filed: 02/08/22 20:40> Radiologist's impression: FINDINGS: Moderate to large lipohemarthrosis suspicious for intra-articular fracture. There is subtle lucency through the patella equivocal for nondisplaced patellar fracture. No other fracture line is seen. Joint spaces are maintained. No osseous lesion.? XR/XR knee RT 2V IMPRESSION: ? 1. Moderate to large lipohemarthrosis suspicious for underlying intra-articular fracture. 2. Subtle linear lucency through the lower patella, possibly nondisplaced patellar fracture. Correlate with focal pain at this location on exam. <RONAN Li Last Filed: 02/08/22 20:40> Right hand/wrist x-ray/forearm: Attestation: I personally reviewed and interpreted this imaging study as follows: <RONAN Li - Last Filed: 02/08/22 20:40> Radiologist's impression: FINDINGS: Right forearm: No fracture or cortical disruption. Alignment maintained at the wrist and elbow. The soft tissues appear unremarkable. Left hand: No fracture or dislocation. Alignment is anatomic. Joint spaces are maintained. The soft tissues are unremarkable. Cystic change noted in the lunate, likely degenerative. XR/XR hand LT min 3V IMPRESSION: No acute abnormality of the right forearm or left hand.? <RONAN Li - Last Filed: 02/08/22 20:40> Critical Care Time Critical Care Time Critical Care Time: No <RONAN Paulino Last Filed: 02/08/22 18:26> Discharge Plan Discharge Clinical Impression: Patellar fracture, Fracture of distal end of femur, Contusion of elbow, right, Fall, Effusion of elbow joint, right, Sprain of right elbow <RONAN Paulino Last Filed: 02/08/22 18:26> Patient Disposition: Home, Self-Care <RONAN Paulino Last Filed: 02/08/22 18:26> Instructions: Leg Fracture (ED), Crutch Instructions (ED), Patellar Fracture (ED), Knee Immobilizer (ED), Swollen Joint (ED) <RONAN Paulino - Last Filed: 02/08/22 18:26> Additional Instructions: It is very important that you do not bear any weight on your right leg. Will use crutches. Return if any new or worsening symptoms follow-up with orthopedics called in to make an appointment within 1-2 weeks. <RONAN Paulino Last Filed: 02/08/22 18:26> Prescriptions: New acetaminophen [Tylenol Extra Strength] 500 mg tablet 1,000 mg PO QID PRN (Reason: fever or pain) Qty: 14 0RF ibuprofen 800 mg tablet 800 mg PO Q8H PRN (Reason: pain) Qty: 14 0RF <RONAN Paulino - Last Filed: 02/08/22 18:26> Referrals: Bayron Frederick MD [Physician] - 2 weeks (Patellar fracture, intra-articular fx of the distal femur. Call to make a follow-up appointment within the next 1-2 weeks) <RONAN Paulino Last Filed: 02/08/22 18:26> Stand Alone Forms: Work/School Release <RONAN Paulino - Last Filed: 02/08/22 18:26>
[2022-02-08] MEDS: Acetaminophen 325 MG TABLET 975 MG PO (18:14)
== END 2022-02-08 21:05 | disposition home or self-care (01) ==
PROVIDERS: Emergency Provider Emergency Medicine Emergency Medical Services; PCP Internal Medicine
DX: S82.001A Unspecified fracture of right patella, initial encounter for closed fracture (principal); S72.401A Unspecified fracture of lower end of right femur, initial encounter for closed fracture; S50.01XA Contusion of right elbow, initial encounter; S53.401A Unspecified sprain of right elbow, initial encounter; W01.198A Fall on same level from slipping, tripping and stumbling with subsequent striking against other object, initial encounter; M25.421 Effusion, right elbow; Y93.F9 Activity, other caregiving; Y92.129 Unspecified place in nursing home as the place of occurrence of the external cause; Y99.0 Civilian activity done for income or pay
CPT/HCPCS: 73080; 73090; 73130; 73200; 73560; 99283; 99284

== ENCOUNTER → 2023-07-23 08:28 | Outpatient (BNVA) | payer OTHER, SELFPAY | PROVIDERS: PCP Internal Medicine; Visit Provider Physician Assistant | DX: Z77.21 Contact with and (suspected) exposure to potentially hazardous body fluids (principal) | CPT/HCPCS: 99204 ==

== ENCOUNTER → 2023-10-31 15:41 | Outpatient (BNVA) | payer OTHER, SELFPAY | PROVIDERS: PCP Internal Medicine | DX: Z77.21 Contact with and (suspected) exposure to potentially hazardous body fluids (principal) | CPT/HCPCS: 84450; 84460; 86803; 87389; 99211 ==